=== PATIENT | female | born 1960 ===

== ENCOUNTER 2023-11-26 12:19 | Emergency (ER) | payer BC, SELFPAY ==
[2023-11-26 12:20] VITALS: BP 206/108
--- NOTE | 2023-11-26 14:01 | ED.GENMED ---
History of Present Illness
General
Chief Complaint: Musculo-Skeletal Complaint
Source: patient
Time Seen by Provider: 11/26/23 13:45
Travel History
Have you had any contact with someone who has COVID-19?: No
Do you have any symptoms of coronavirus? Fever > 100 degrees, chills, cough, shortness of breath, sore throat, loss of taste or smell, muscle aches, or headache?: No
History of Present Illness
History of Present Illness:
63-year-old female presenting to the emergency department for evaluation of left knee pain that began today after she was putting on her slipper and excellently twisted her knee. Patient states the pain is both medial and lateral but she was able
to ambulate following. She denies any other injuries or concerns. No known history of previous injuries.
Past History
Past History
ED Past Medical History: Cancer, HTN, Hypercholesterolemia, NIDDM and Hypothyroidism
ED Past Surgical History: Gynecological and Other
Social History
Tobacco: Non-smoker
Alcohol: None
Drug: None
Personal:
Living: with family
Review of Systems
Review of Systems
All Other Systems: ROS reviewed and negative except as documented in HPI and ROS
Phy Exam
Physical Exam
Physical Exam:
GENERAL: Alert , in no apparent distress
EYE: conjunctiva clear
Head: Normocephalic atraumatic
NECK: Supple,
ENT: mmm.
LUNGS: no acute respiratory distress
NEUROLOGICAL: Alert and oriented
SKIN: Warm and dry, skin intact.
MUSCULOSKELETAL: Left lower extremity: Mild soft tissue swelling of the left knee without any appreciable joint effusion. Range of motion limited secondary to pain. Knee is diffusely tender. Patella intact without any deformity. Breaks in the
skin. Remainder of extremity is warm and well-perfused and without any deformity
PSYCH: Normal and appropriate interaction.
Scores
Heart Failure Risk
Heart Failure Risk Score: Not Applicable
Heart Score for Chest Pain Patients
STEMI patient?: Not applicable
Withdrawal Assessment of Alcohol
Withdrawal Assessment Completed?: Not applicable
Course
Orders/Labs/Results
Orders:
Orders
11/26/23 12:23
Knee, Left 4 or More Views [CR Knee - Left 4 Or More View*] Urgent
Comment:
Reason For Exam: pain
11/26/23 14:00
Knee Immobilizer Left-Treatmen ONCE
Vital Signs
Initial and Last Documented VS:
Initial Vital Signs
Temp Pulse Resp BP Pulse Ox
98.5 F 81 18 206/108 96
11/26/23 12:20 11/26/23 12:20 11/26/23 12:20 11/26/23 12:20 11/26/23 12:20
Last Documented Vital Signs
Temp Pulse Resp BP Pulse Ox
98.5 F 63 19 168/81 97
11/26/23 12:20 11/26/23 14:11 11/26/23 14:11 11/26/23 14:11 11/26/23 14:11
MDM/Problems Addressed
Differential Diagnosis Includes:
Ligamentous injury, meniscal injury, contusion, joint effusion
MDM/Problems Addressed:
63-year-old female present emergency department for evaluation of left knee pain after she excellently twisted her left knee putting on a slipper. There is soft tissue swelling but without joint effusion. An x-ray was ordered from triage and shows
degenerative changes without any evidence for fracture. Will place in a knee immobilizer for comfort. NSAIDs/Tylenol as needed for pain. Provided patient with information for orthopedist to follow-up with as an outpatient. Aware of return
precautions to the ER but otherwise stable for discharge home.
*Radiology
Radiology exam reviewed: preliminary read by ED provider (No fracture or dislocation)
*Pulse Oximetry
Patient hypoxic: no
*Critical Care Note
Total Time (30-74mins, 75-104mins- exclusive of procedures): Not Applicable
ED Attending Note
-
Portions of this chart may have been created with voice recognition software.� Occasional wrong word or��sound alike� substitutions may have occurred due to the inherent limitations of voice recognition software.
Discharge Plan
Departure
Patient Disposition: Home (Routine Discharge)
Date of Disposition: 11/26/23
Time of Disposition: 14:01
Patient with high blood pressure during this ER visit?: Yes
Discharge Problem:
Knee pain, left
Instructions: Knee Pain (DC)
Prescriptions:
No Action
losartan 50 mg Tablet
50 mg PO DAILY
metformin 500 mg Tablet
500 mg PO BID
simvastatin 10 mg Tablet
10 mg PO QPM
amlodipine 5 mg Tablet
5 mg PO DAILY
Trulicity 1.5 mg/0.5 mL Pen Injector
1.5 mg SC QWEEK
Rx Instructions:
Tuesdays
omeprazole magnesium [Prilosec OTC] 20 mg Tablet,Delayed Release (Dr/Ec)
20 mg PO DAILY
levothyroxine [Synthroid] 88 mcg tablet
88 mcg PO DAILY Qty: 30 2RF
Referrals:
Art Lutz MD [Active] - (Ortho)
Delgado Zhou DO [Family Provider] -
Interventions
Interventions:
*Risk Screen - Suicide Last Done: 11/26/23 12:20
*General Assessment Last Done: 11/26/23 12:20
*Neglect/Abuse Screening Last Done: 11/26/23 12:20
ED- Fall Risk Assessment Last Done: 11/26/23 14:15
*ED COVID-19 Vaccine History Last Done: 11/26/23 12:20
*Nursing Disposition Last Done: 11/26/23 14:15
ED-Musculoskeletal Assessment Last Done: 11/26/23 12:41
Discharge Date and Time
Discharge Date/Time: 11/26/23 14:16
[2023-11-26 14:11] VITALS: BP 168/81
== END 2023-11-26 14:16 | disposition home or self-care (01) ==
LOC: EMR 12:19
PROVIDERS: EMERGENCY PHYSICIAN Emergency Medicine; FAMILY PHYSICIAN Family Medicine
DX: M25.562 Pain in left knee (principal); X50.1XXA Overexertion from prolonged static or awkward postures, initial encounter; I10 Essential (primary) hypertension
CPT/HCPCS: 99283; 29505; 73564